=== PATIENT | male | born 1990 | race Two or more races ===

== ENCOUNTER 2016-03-27 03:06 | Emergency (ER) | payer SELFPAY ==
[~2016-03-27] VITALS: Ht 172.7 cm; Wt 108.9 kg
[2016-03-27 03:28] VITALS: BP 131/92
[2016-03-27] MEDS ORDERED: AMOX1TAB61 PO (03:36)
--- NOTE | 2016-03-27 03:37 | PHYS DOC ---
Past Medical History Past Medical History: Hypertension, Unknown, Other Additional Past Medical Histor: suicide attempt Past Surgical History: No Surgical History Alcohol Use: Occasionally Drug Use: None Adult General Chief Complaint Chief Complaint: FINGER INJURY HPI HPI 25-year-old male presenting the emergency department with an injury that occurred 6 days ago where he sustained a laceration and smash injury to his right ring finger. He has been using ibuprofen and Neosporin with mild improvement. He has noticed worsening redness and pain in the area of injury. His pain is sharp nonradiating mild and worse with movement. Review of systems is negative for nausea vomiting fevers chills chest pain or shortness of breath. All other review of systems is negative unless otherwise noted in history of present illness. Review of Systems Review of Systems SEE ABOVE. Current Medications Current Medications Current Medications Medications (Trade) Dose Ordered Sig/Malik Start Time Stop Time Status Last Admin Dose Admin Diphtheria/ Tetanus/Acell Pertussis (Boostrix) 0.5 ml ONCE ONCE 03/27/16 04:00 03/27/16 04:00 DC Allergies Allergies Allergies Coded Allergies Type Severity Reaction Last Updated Verified No Known Drug Allergies 10/23/14 No Physical Exam Physical Exam Constitutional: Well developed, well nourished, no acute distress, non-toxic appearance. HENT: Normocephalic, atraumatic, bilateral external ears normal, oropharynx moist, no oral exudates, nose normal. [] Eyes: PERRLA, EOMI, conjunctiva normal, no discharge. Neck: Normal range of motion, no tenderness, supple, no stridor. Cardiovascular:Heart rate regular rhythm, no murmur [] Lungs & Thorax: Bilateral breath sounds clear to auscultation Abdomen: Bowel sounds normal, soft, no tenderness, no masses, no pulsatile masses. [] Skin: Warm, dry, no erythema, no rash. Back: No tenderness, no CVA tenderness. [] Extremities: The patient's right ring finger is warm swollen and has an old laceration that is healing currently by secondary intention on the volar aspect of the ring finger. 2 second cap refill present. Otherwise no injuries present. Neurologic: Alert and oriented X 3, normal motor function, normal sensory function, no focal deficits noted. [] Psychologic: Affect normal, judgement normal, mood normal. [] Current Patient Data Vital Signs Vital Signs Date Time Temp Pulse Resp B/P Pulse Ox O2 Delivery O2 Flow Rate FiO2 03/27/16 03:28 98.2 114 16 95 Room Air 98.2 03/27/16 03:28 131/92 EKG EKG [] Radiology/Procedures Radiology/Procedures [] Course & Med Decision Making Course & Med Decision Making Pertinent Labs and Imaging studies reviewed. (See chart for details) [] 25-year-old male presenting the emergency department after sustaining injury to his right ring finger approximately 6 days ago. Injury was outside of the timeframe for primary intention reapproximation. Tetanus update was ordered however the patient left prior to this being able to be completed. The finger looked infected. X-ray was ordered however the patient left prior to x-ray being obtained. I recommended oral antibiotics and referral to a hand surgeon. Unfortunately, the patient did not want to wait to be discharged and left AGAINST MEDICAL ADVICE. I explained to him that he could lose his hand and his life if this infection is not taking care of. I offered him antibiotics however the patient left prior to my ability to give him the antibiotic prescription. He did say he was going to go to another local hospital. Dragon Disclaimer Dragon Disclaimer This electronic medical record was generated, in whole or in part, using a voice recognition dictation system. Departure Departure Impression: Primary Impression: Finger infection Disposition: AGAINST MEDICAL ADVICE Condition: GUARDED Referrals: NO PCP (PCP) LIZZ ROMEO II, MD Patient Instructions: Fingertip Infections Additional Instructions: Thank you for allowing us to participate in your care today. Followup with orthopedic hand surgery on MondayMar 28. Appointments may be made with Jackson Adams M.D., Gentry Warren M.D., and Maximus Quinonez M.D. by calling [phone] at the [facility]. If you do not have a primary care provider you can ask for a list of our primary care providers. Return to the emergency department you have any new or concerning findings. This should be evaluated by the primary care physician and any necessary consulting services for continued management within a few days after discharge. Return to emergency room if you have any new or concerning symptoms including but not limited to fever, chills, nausea, vomiting, intractable pain, any new rashes, chest pain, shortness of air, uncontrolled bleeding, difficulty breathing, and/or vision loss. Scripts Amoxicillin/Potassium Clav (Augmentin 875-125 Tablet)1 Each Tablet1 Tab PO BID # 20 TAB Prov:MICHELLE WONG MD 03/27/16 MICHELLE WONG MD Mar 27, 2016 03:37
[2016-03-27] MEDS ORDERED: DIPHTH,PERTUSS(ACELL),TET TOX 0.5 ML DISP.SYRIN. VAX IM ONE (04:00)
== END 2016-03-27 03:47 | disposition left against medical advice (07) ==
LOC: ER 03:06
DX: L08.9 Local infection of the skin and subcutaneous tissue, unspecified (principal); I10 Essential (primary) hypertension
CPT/HCPCS: 99283

== ENCOUNTER 2016-07-22 03:43 | Emergency (ER) | payer SELFPAY ==
[~2016-07-22] VITALS: Ht 172.7 cm; Wt 108.9 kg
[~2016-07-22 03:43] MED LIST: AMOX1TAB61 PO
[2016-07-22 04:03] LABS: BASO # 0.1 x10^3/uL (0.0-0.2); BASO % 1 % (0-3); EOS % 1 % (0-3); HEMATOCRIT 50.2 % (39.0-53.0); HEMOGLOBIN 17.5 g/dL (13.0-17.5); LYMPH # 4.2 x10^3/uL (1.0-4.8); LYMPH % 41 % (24-48); MEAN CORPUSCULAR HEMOGLOBIN 33 pg (25-35); MEAN CORPUSCULAR HGB CONC 35 g/dL (31-37); MEAN CORPUSCULAR VOLUME 95 fL (79-100); MONO % 6 % (0-9); NEUT % 51 % (31-73); PLATELET COUNT 205 x10^3/uL (140-400); RED BLOOD COUNT 5.29 x10^6/uL (4.30-5.70); RED CELL DISTRIBUTION WIDTH 12.5 % (11.5-14.5); WHITE BLOOD COUNT 10.2 x10^3/uL (4.0-11.0)
[2016-07-22 04:18] LABS: CALCIUM 8.8 mg/dL (8.5-10.1); CREATININE 0.9 mg/dL (0.7-1.3); GFR 102.8; POTASSIUM 3.9 mmol/L (3.5-5.1)
--- NOTE | 2016-07-22 04:20 | PHYS DOC ---
Past Medical History Past Medical History: Hypertension, Unknown, Other Additional Past Medical Histor: suicide attempt Past Surgical History: No Surgical History Alcohol Use: Heavy Drug Use: None Adult General Chief Complaint Chief Complaint: OVERDOSE HPI HPI Patient is a 26 year old gentleman who presents here today secondary to depression and suicide attempt. Patient reports he overdosed on a bottle of aspirin, Tylenol Jelco, and ibuprofen approximately midnight to 1 AM. Patient has a history of hypertension that he reports he is not treated for. Patient denies any diabetes liver longer kidney problems. Patient denies any mental health issues in the past. Patient denies any prior suicide attempts in the past. Patient denies any fevers shakes chills nausea vomiting diarrhea. Patient has been to midepigastric abdominal pain. Patient denies any emesis after his overdose. Patient reports he lost his never came to the ER after taking all those medications. Patient reports he was drinking alcohol earlier today. He reports he drank 4 large beers. Patient's physical exam is significant for tenderness to palpation to the midepigastric area. Patient has no rebound or guarding. Patient is not present with a surgical abdomen. Patient is alert awake oriented 3. Patient's is moving all extremities well. Patient's pupils are equally round and reactive to light. Extraocular motions are intact. Patient does have axillary sweat. Heart is regular rate and rhythm. Lungs were clear without any wheezing rales or rhonchi. Assessment and plan Depression/suicide attempt. Patient overdosed on aspirin, Tylenol, ibuprofen and alcohol. We will check his overdose panel and reevaluate the patient. Patient's ER workup was significant for an alcohol level of 271. Despite the patient reporting that he overdosed on a bottle of Tylenol gelcaps and a bottle of aspirin the patient's Tylenol level 0 and the aspirin level at presumably 2 hours out is 4. The remainder the patient's lab workup is benign unremarkable. Patient does not appear to be having an acidosis. There is no anion gap. Patient clinically does not present a someone with a salicylate toxicity. Patient denies any tinnitus. Patient is evaluated by our PAT team and they recommended that he is stable for discharge for mental health standpoint. The patient currently is not suicidal. We will go ahead and repeat his salicylate level to assure that it is not rising and of his salicylate level is less than 4 that I feel the patient will be stable for discharged home. Assessment and plan Depression/suicidal ideation with overdose of aspirin Tylenol and ibuprofen with alcohol use. Patient's clinically hemodynamically stable at this time. Patient's labs were all within normal limits. Patient will be stable for discharged home. Review of Systems Review of Systems Constitutional: Denies fever or chills [] Eyes: Denies change in visual acuity, redness, or eye pain [] HENT: Denies nasal congestion or sore throat [] Respiratory: Denies cough or shortness of breath [] Cardiovascular: No additional information not addressed in HPI [] GI: Denies abdominal pain, nausea, vomiting, bloody stools or diarrhea [] : Denies dysuria or hematuria [] Musculoskeletal: Denies back pain or joint pain [] Integument: Denies rash or skin lesions [] Neurologic: Denies headache, focal weakness or sensory changes [] Endocrine: Denies polyuria or polydipsia [] Current Medications Current Medications Current Medications Medications (Trade) Dose Ordered Sig/Malik Start Time Stop Time Status Last Admin Dose Admin Sodium Chloride 1,000 ml @ 1,000 mls/hr 1X ONCE 07/22/16 04:30 07/22/16 05:29 DC 07/22/16 04:30 1,000 MLS/HR Allergies Allergies Allergies Coded Allergies Type Severity Reaction Last Updated Verified No Known Drug Allergies 10/23/14 No Physical Exam Physical Exam Constitutional: Well developed, well nourished, no acute distress, non-toxic appearance. [] HENT: Normocephalic, atraumatic, bilateral external ears normal, oropharynx moist, no oral exudates, nose normal. [] Eyes: PERRLA, EOMI, conjunctiva normal, no discharge. [] Neck: Normal range of motion, no tenderness, supple, no stridor. [] Cardiovascular:Heart rate regular rhythm, no murmur [] Lungs & Thorax: Bilateral breath sounds clear to auscultation [] Abdomen: Bowel sounds normal, soft, Skin: Warm, dry, no erythema, no rash. [] Back: No tenderness, no CVA tenderness. [] Extremities: No tenderness, no cyanosis, no clubbing, ROM intact, no edema. [] Neurologic: Alert and oriented X 3, normal motor function, normal sensory function, no focal deficits noted. [] Psychologic: Affect normal, judgement normal, mood normal. [] Current Patient Data Vital Signs Vital Signs Date Time Temp Pulse Resp B/P (MAP) Pulse Ox O2 Delivery O2 Flow Rate FiO2 07/22/16 03:50 98.1 119 18 186/111 (136) 97 Room Air 98.1 Lab Values Laboratory Tests Test 07/22/16 03:54 07/22/16 05:01 White Blood Count 10.2 x10^3/uL (4.0-11.0) Red Blood Count 5.29 x10^6/uL (4.30-5.70) Hemoglobin 17.5 g/dL (13.0-17.5) Hematocrit 50.2 % (39.0-53.0) Mean Corpuscular Volume 95 fL (79-100) Mean Corpuscular Hemoglobin 33 pg (25-35) Mean Corpuscular Hemoglobin Concent 35 g/dL (31-37) Red Cell Distribution Width 12.5 % (11.5-14.5) Platelet Count 205 x10^3/uL (140-400) Neutrophils (%) (Auto) 51 % (31-73) Lymphocytes (%) (Auto) 41 % (24-48) Monocytes (%) (Auto) 6 % (0-9) Eosinophils (%) (Auto) 1 % (0-3) Basophils (%) (Auto) 1 % (0-3) Neutrophils # (Auto) 5.2 x10^3uL (1.8-7.7) Lymphocytes # (Auto) 4.2 x10^3/uL (1.0-4.8) Monocytes # (Auto) 0.7 x10^3/uL (0.0-1.1) Eosinophils # (Auto) 0.1 x10^3/uL (0.0-0.7) Basophils # (Auto) 0.1 x10^3/uL (0.0-0.2) Sodium Level 141 mmol/L (136-145) Potassium Level 3.9 mmol/L (3.5-5.1) Chloride Level 104 mmol/L (98-107) Carbon Dioxide Level 25 mmol/L (21-32) Anion Gap 12 (6-14) Blood Urea Nitrogen 7 mg/dL (8-26) L Creatinine 0.9 mg/dL (0.7-1.3) Estimated GFR (Cockcroft-Gault) 102.8 BUN/Creatinine Ratio 8 (6-20) Glucose Level 117 mg/dL (70-99) H Calcium Level 8.8 mg/dL (8.5-10.1) Total Bilirubin 0.2 mg/dL (0.2-1.0) Aspartate Amino Transferase (AST) 56 U/L (15-37) H Alanine Aminotransferase (ALT) 108 U/L (16-63) H Alkaline Phosphatase 87 U/L (46-116) Total Protein 8.4 g/dL (6.4-8.2) H Albumin 4.2 g/dL (3.4-5.0) Albumin/Globulin Ratio 1.0 (1.0-1.7) Salicylates Level 4.3 mg/dL (2.8-20.0) Salicylate Last Dose Date Unk Salicylate Last Dose Time Unk Acetaminophen Level < 2 mcg/ml (10-30) L Acetaminophen Last Dose Date Unk Acetaminophen Last Dose Time Unk Ethyl Alcohol Level 271 mg/dL (0-10) H Urine Collection Type Unknown Urine Color Yellow Urine Clarity Clear Urine pH 5.5 Urine Specific Cando 1.010 Urine Protein Negative mg/dL (NEG-TRACE) Urine Glucose (UA) Negative mg/dL (NEG) Urine Ketones (Stick) Negative mg/dL (NEG) Urine Blood Negative (NEG) Urine Nitrite Negative (NEG) Urine Bilirubin Negative (NEG) Urine Urobilinogen Dipstick 0.2 mg/dL (0.2 mg/dL) Urine Leukocyte Esterase Negative (NEG) Urine RBC 0 /HPF (0-2) Urine WBC 0 /HPF (0-4) Urine Squamous Epithelial Cells Few /LPF Urine Bacteria 0 /HPF (0-FEW) Urine Opiates Screen Neg (NEG) Urine Methadone Screen Neg (NEG) Urine Barbiturates Neg (NEG) Urine Phencyclidine Screen Neg (NEG) Urine Amphetamine/Methamphetamine Neg (NEG) Urine Benzodiazepines Screen Neg (NEG) Urine Cocaine Screen Neg (NEG) Urine Cannabinoids Screen Neg (NEG) Urine Ethyl Alcohol Pos (NEG) Laboratory Tests 07/22/16 03:54 Laboratory Tests 07/22/16 03:54 EKG EKG [] Radiology/Procedures Radiology/Procedures [] Course & Med Decision Making Course & Med Decision Making Pertinent Labs and Imaging studies reviewed. (See chart for details) [] Dragon Disclaimer Dragon Disclaimer This electronic medical record was generated, in whole or in part, using a voice recognition dictation system. Departure Departure Impression: Primary Impression: Alcohol intoxication Additional Impressions: Depression Suicidal ideation Suicide attempt Drug overdose Disposition: 01 HOME, SELF-CARE Condition: IMPROVED Referrals: NO PCP (PCP) Patient Instructions: Alcohol Intoxication, Depression, Adult, Suicide, Helping Someone Who is Suicidal Problem Qualifiers SHAZIA BINGHAM MD Jul 22, 2016 04:19
[2016-07-22 04:23] LABS: ALBUMIN 4.2 g/dL (3.4-5.0); TOTAL BILIRUBIN 0.2 mg/dL (0.2-1.0); TOTAL PROTEIN 8.4 g/dL (6.4-8.2)
[2016-07-22 04:25] LABS: ETHANOL 271 mg/dL (0-10)
[2016-07-22] MEDS ORDERED: IV NORMAL SALINE 1000ML BAG 1,000 ML IV ONE ×2 (04:30→07:15)
[2016-07-22 05:09] LABS: BILIRUBIN,URINE NEGATIVE (NEG); GLUCOSE,URINE NEGATIVE (NEG); NITRITE,URINE NEGATIVE (NEG); PH,URINE 5.5; PROTEIN,URINE NEGATIVE (NEG-TRACE); UROBILINOGEN,URINE 0.2 mg/dL (0.2 mg/dL)
[2016-07-22 05:15] LABS: BARBITURATES NEG (NEG); BENZODIAZEPINES NEG (NEG); CANNABINOIDS NEG (NEG); COCAINE NEG (NEG); METHADONE NEG (NEG); OPIATES NEG (NEG); PHENCYCLIDINE NEG (NEG)
[2016-07-22 05:17] LABS: BACTERIA,URINE 0 /HPF (0-FEW); RBC,URINE 0 /HPF (0-2); SQUAMOUS EPITHELIAL CELL,UR FEW /LPF; WBC,URINE 0 /HPF (0-4)
--- NOTE | 2016-07-22 05:32 | ACF ---
Admission Forms Criteria DRUG INGESTION OR OVERDOSE Clinical Indications for Admission to Inpatient Care ( Place 'X' for any and all applicable criteria): Admission is indicated for severe toxicity as indicated by ANY ONE of the following(1)(2)(3)(4)(5)(6): [ ]I. Inpatient admission required rather than observation care (Also use Drug Ingestion or Overdose: Observation Care guideline as appropriate) because of ANY ONE of the following: [ ]a) Altered mental status that is severe or persistent [ ]b) Clinical finding (eg, metabolic acidosis, hypoglycemia, bradycardia) that is severe or persistent [ ]c) Toxic drug level that is persistent [ ]d) Psychiatric risk status not acceptable for outpatient management [ ]e) Continuous intravenous infusion of anticoagulation, platelet inhibitor, vasoactive, or antiarrhythmic medication (15)(16) [ ]f) Other condition, treatment or monitoring requiring inpatient admission [ ]II. Respiratory abnormalities [ ]III. Specific finding indicating severe and likely prolonged drug toxicity [ ]IV. Hemodynamic instability [ ]V. Dangerous arrhythmia [ ]. Hypertension requiring inpatient treatment Extended stay beyond goal length of stay may be needed for (4): [ ]a) Neurologic or respiratory compromise [ ]b) Hemodynamic instability [ ]c) Persistent toxic drug levels (25) [ ]d) Severe drug toxicities or complications [ ]e) Ongoing antidote treatment (eg, acetaminophen overdose)(5) [ ]f) Older patients(65 years or older) The original [employer] content created by [employer] has been revised. The portions of the content which have been revised are identified through the use of italic text or in bold, and [facility] has neither reviewed nor approved the modified material. All other unmodified content is copyright [employer]. Please see references footnoted in the original [employer] edition 2016 SATHISH HREBERT Jul 22, 2016 05:32
[2016-07-22 06:52] VITALS: BP 143/78
[2016-07-22 07:35] LABS: ALT (SGPT) 111 U/L (16-63); AST (SGOT) 59 U/L (15-37)
== END 2016-07-22 08:03 | disposition home or self-care (01) ==
LOC: ER 03:43
DX: T39.012A Poisoning by aspirin, intentional self-harm, initial encounter (principal); T39.1X2A Poisoning by 4-Aminophenol derivatives, intentional self-harm, initial encounter; T39.312A Poisoning by propionic acid derivatives, intentional self-harm, initial encounter; F32.9 Major depressive disorder, single episode, unspecified; R10.13 Epigastric pain; I10 Essential (primary) hypertension; F10.129 Alcohol abuse with intoxication, unspecified; Y90.9 Presence of alcohol in blood, level not specified; Y92.89 Other specified places as the place of occurrence of the external cause; Y90.8 Blood alcohol level of 240 mg/100 ml or more
CPT/HCPCS: 36415; 80053; 80305; 81001; 84450; 84460; 85027; 96360; 96361; 99285; G0480; J7030; 80329; G0481

== ENCOUNTER 2019-12-31 22:29 | Emergency (ER) | payer SELFPAY ==
[~2019-12-31] VITALS: Ht 172.7 cm; Wt 88.0 kg
[2019-12-31 22:40] VITALS: BP 176/114
--- NOTE | 2019-12-31 23:07 | PHYS DOC ---
Past Medical History Past Medical History: Anxiety, Depression, Hypertension, Unknown, Other Additional Past Medical Histor: suicide attempt Past Surgical History: No Surgical History Smoking Status: Current Every Day Smoker Alcohol Use: Heavy Drug Use: None General Adult EDM: Chief Complaint: DENTAL PROBLEM HPI: HPI: Patient is a 29 year old male with history of hypertension, depression, anxiety, who presents to the ED today with swelling on the left gum from a dental abscess. Patient states he has history of dental infections. He states this morning woke up and his left side of the face was swollen. Denies any fever, denies any trismus. He states he drank "ALOT" of alcohol today. He states he does not want to follow-up with [facility] because we sent homeless people to follow-up from there. Initially stated he is homeless then he stated he has a roommate he is not homeless. He is mean at times using "F" language on people in the room including myself Review of Systems: Review of Systems: Constitutional: Denies fever or chills. [] HENT: Reports dental abscess Musculoskeletal: Denies back pain or joint pain. [] Integument: Denies rash. [] Neurologic: Denies headache, focal weakness or sensory changes. [] Psychiatric: Denies depression or anxiety. [] Heart Score: Risk Factors: Risk Factors: DM, Current or recent (<one month) smoker, HTN, HLP, family history of CAD, obesity. Risk Scores: Score 0 - 3: 2.5% MACE over next 6 weeks - Discharge Home Score 4 - 6: 20.3% MACE over next 6 weeks - Admit for Clinical Observation Score 7 - 10: 72.7% MACE over next 6 weeks - Early Invasive Strategies Allergies: Allergies: Allergies Coded Allergies Type Severity Reaction Last Updated Verified No Known Drug Allergies 10/23/14 No Physical Exam: PE: Constitutional: Well developed, well nourished, no acute distress, non-toxic appearance. [] HENT: Normocephalic, atraumatic, bilateral external ears normal, oropharynx moist, no oral exudates, nose normal. [] Left exterior jaw with moderate swelling consistent of a dental abscess. Missing some of his premolars, and molars, the surface where the premolars and molars existed appears to have DKA, the gum is swollen with no fluctuance. Skin: Warm, dry, no erythema, no rash. [] Back: No tenderness, no CVA tenderness. [] Extremities: No tenderness, no cyanosis, no clubbing, ROM intact, no edema. [] Neurologic: Alert and oriented X 3, normal motor function, normal sensory function, no focal deficits noted. [] Psychologic: Patient is mean at times using "F" language. He is very drunk Current Patient Data: Vital Signs: Vital Signs Date Time Temp Pulse Resp B/P (MAP) Pulse Ox O2 Delivery O2 Flow Rate FiO2 12/31/19 22:40 98.0 130 16 176/114 (134) 98 Room Air 98.0 EKG: EKG: [] Radiology/Procedures: Radiology/Procedures: [] Course & Med Decision Making: Course & Med Decision Making Pertinent Labs and Imaging studies reviewed. (See chart for details) This is a 29-year-old male patient presenting to the ED with a dental abscess. Patient is extremely drunk right now, at times using foul language on hospital staff. Patient left AMA Shahnaz Disclaimer: Shahnaz Disclaimer: This electronic medical record was generated, in whole or in part, using a voice recognition dictation system. Departure Departure Impression: Primary Impression: Dental abscess Additional Impression: Alcohol intoxication Qualified Codes: F10.929 - Alcohol use, unspecified with intoxication, unspecified Disposition: 07 AMA/ELOPED/LWBS Condition: STABLE Referrals: NO PCP (PCP) MARIELLE MARTINI APRN Dec 31, 2019 23:07
[2019-12-31] MEDS ORDERED: CLINDAMYCIN HCL 150 MG CAPSULE. PO ONE (23:30)
[2019-12-31] MEDS ORDERED: cefTRIAXone IM 1 GM VIAL IM ONE (23:30)
[2019-12-31] MEDS ORDERED: KETOROLAC 60 MG/2 ML VIAL. IM ONE (23:30)
== END 2019-12-31 23:18 | disposition home or self-care (01) ==
LOC: ER 22:29
DX: K04.7 Periapical abscess without sinus (principal); F10.229 Alcohol dependence with intoxication, unspecified; R60.0 Localized edema; F41.9 Anxiety disorder, unspecified; F32.9 Major depressive disorder, single episode, unspecified; I10 Essential (primary) hypertension; F17.200 Nicotine dependence, unspecified, uncomplicated
CPT/HCPCS: 99281

== ENCOUNTER 2020-01-01 12:40 | Emergency (ER) | payer SELFPAY ==
[~2020-01-01] VITALS: Ht 170.2 cm; Wt 100.0 kg
[2020-01-01] MEDS ORDERED: MORPHINE SULFATE 4 MG/ML VIAL. IV ONE (13:15)
--- NOTE | 2020-01-01 13:18 | PHYS DOC ---
Past Medical History Past Medical History: Anxiety, Depression, Hypertension, Unknown, Other Additional Past Medical Histor: suicide attempt Past Surgical History: No Surgical History Smoking Status: Current Every Day Smoker Alcohol Use: Heavy Drug Use: None General Adult EDM: Chief Complaint: DENTAL PROBLEM HPI: HPI: History from patient. Patient is a 21-year-old male with no reported past medical history who presents with complaint of jaw swelling. He states he was seen in our emergency department for some swelling to the left submandibular region. He states that he ended up leaving prior to receiving any discharge instructions or medications. He states he returns today with worsening swelling to his left lower lip and submandibular region. States the swelling is spread to his submental region. Does have some slight pain with opening his mouth. Denies any changes to his voice. Does note some mild tenderness with swallowing. Denies any fevers. Denies any recent antibiotics. Denies any recent dental procedures. Denies trauma to the area. Does not take any NATALEE inhibitor's. Denies vomiting. States pain is aching in nature. Rates pain as 6 out of 10. States pain is constant. States it is somewhat painful to chew food. Denies any active drainage in the mouth. No other complaints Review of Systems: Review of Systems: Constitutional: Denies fever or chills. [] Eyes: Denies change in visual acuity. [] HENT: Positive for odynophagia Respiratory: Denies cough or shortness of breath. [] Cardiovascular: Denies chest pain or edema. [] GI: Denies abdominal pain, nausea, vomiting, bloody stools or diarrhea. [] : Denies dysuria. [] Musculoskeletal: Denies back pain or joint pain. [] Integument: Denies rash. [] Neurologic: Denies headache, focal weakness or sensory changes. [] Endocrine: Denies polyuria or polydipsia. [] Lymphatic: Denies swollen glands. [] Psychiatric: Denies depression or anxiety. [] Heart Score: Risk Factors: Risk Factors: DM, Current or recent (<one month) smoker, HTN, HLP, family history of CAD, obesity. Risk Scores: Score 0 - 3: 2.5% MACE over next 6 weeks - Discharge Home Score 4 - 6: 20.3% MACE over next 6 weeks - Admit for Clinical Observation Score 7 - 10: 72.7% MACE over next 6 weeks - Early Invasive Strategies Current Medications: Current Medications Medications (Trade) Dose Ordered Sig/Malik Start Time Stop Time Status Last Admin Dose Admin Morphine Sulfate (Morphine Sulfate) 4 mg 1X ONCE 01/01/20 13:15 01/01/20 13:16 Allergies: Allergies: Allergies Coded Allergies Type Severity Reaction Last Updated Verified No Known Drug Allergies 10/23/14 No Physical Exam: PE: Constitutional: Well developed, well nourished, no acute distress, non-toxic appearance. [] HENT: Normocephalic, atraumatic, bilateral external ears normal, oropharynx moist, no oral exudates, nose normal. [] ENT: Tolerates saliva. Mild trismus. Mild erythema of the oropharynx without exudate. No airway obstruction. Normal phonation. Uvula midline. No woody sen sation at the base of the tongue. NECK: No midline cervical tenderness. Anterior cervical adenopathy is present. No tenderness of carotid sheath bilaterally. Neck supple with ful ROM and without signs of meningismus. Swelling and firmness palpated in the left submandibular and left-sided submental regions. Eyes: PERRLA, EOMI, conjunctiva normal, no discharge. [] Neck: Normal range of motion, no tenderness, supple, no stridor. [] Cardiovascular:Heart rate regular rhythm, no murmur [] Lungs & Thorax: Bilateral breath sounds clear to auscultation [] Abdomen: soft, no tenderness, no masses, no pulsatile masses. [] Skin: Warm, dry, no erythema, no rash. [] Back: No tenderness, no CVA tenderness. [] Extremities: No tenderness, no cyanosis, no clubbing, ROM intact, no edema. [] Neurologic: Alert and oriented X 3, normal motor function, normal sensory function, no focal deficits noted. [] Psychologic: Affect normal, judgement normal, mood normal. [] Current Patient Data: Labs: Laboratory Tests Test 01/01/20 13:15 White Blood Count 11.7 x10^3/uL Red Blood Count 5.17 x10^6/uL Hemoglobin 17.8 g/dL Hematocrit 50.5 % Mean Corpuscular Volume 98 fL Mean Corpuscular Hemoglobin 34 pg Mean Corpuscular Hemoglobin Concent 35 g/dL Red Cell Distribution Width 12.3 % Platelet Count 127 x10^3/uL Neutrophils (%) (Auto) 79 % Lymphocytes (%) (Auto) 12 % Monocytes (%) (Auto) 8 % Eosinophils (%) (Auto) 0 % Basophils (%) (Auto) 1 % Neutrophils # (Auto) 9.3 x10^3/uL Lymphocytes # (Auto) 1.4 x10^3/uL Monocytes # (Auto) 1.0 x10^3/uL Eosinophils # (Auto) 0.0 x10^3/uL Basophils # (Auto) 0.1 x10^3/uL Sodium Level 137 mmol/L Potassium Level 4.4 mmol/L Chloride Level 100 mmol/L Carbon Dioxide Level 27 mmol/L Anion Gap 10 Blood Urea Nitrogen 8 mg/dL Creatinine 0.7 mg/dL Estimated GFR (Cockcroft-Gault) 134.3 Glucose Level 122 mg/dL Calcium Level 9.2 mg/dL Current Medications Medications (Trade) Dose Ordered Sig/Malik Route PRN Reason Start Time Stop Time Status Last Admin Dose Admin Morphine Sulfate (Morphine Sulfate) 4 mg 1X ONCE IV 01/01/20 13:15 01/01/20 13:16 DC 01/01/20 13:25 Iohexol (Omnipaque 300 Mg/ml) 70 ml 1X ONCE IV 01/01/20 13:45 01/01/20 13:46 DC 01/01/20 14:00 Info (CONTRAST GIVEN -- Rx MONITORING) 1 each PRN DAILY PRN MC SEE COMMENTS 01/01/20 14:00 01/03/20 13:59 Ampicillin Sodium/ Sulbactam Sodium 3 gm/Sodium Chloride 100 ml @ 200 mls/hr 1X ONCE IV 01/01/20 15:30 01/01/20 15:59 01/01/20 15:29 Hydromorphone HCl (Dilaudid) 1 mg 1X ONCE IVP 01/01/20 15:15 01/01/20 15:16 DC 01/01/20 15:27 Vital Signs: Vital Signs Date Time Temp Pulse Resp B/P (MAP) Pulse Ox O2 Delivery O2 Flow Rate FiO2 01/01/20 14:48 100 174/85 (114) 99 Room Air 01/01/20 13:11 99.0 114 20 169/110 (129) 97 Room Air 99.0 EKG: EKG: [] Radiology/Procedures: Radiology/Procedures: [facility] [address] [place] [address] IMAGING REPORT Signed PATIENT: JOSH SEVILLA ACCOUNT: [id number] : 1990 LOCATION: ER AGE: 29 SEX: M EXAM STATUS: REG ER ORD. PHYSICIAN: DUSTY THOMAS DO REASON: Left submental and submandibular swelling and pain PROCEDURE: CT SOFT TISSUE NECK W/CONTRAST PQRS Compliance Statement: One or more of the following individualized dose reduction techniques were utilized for this examination: 1. Automated exposure control 2. Adjustment of the mA and/or kV according to patient size 3. Use of iterative reconstruction technique CT SOFT TISSUE NECK W/CONTRAST Clinical Indication: Reason: Left submental and submandibular swelling and pain / Spl. Instructions: INJ 70ML OMNI 300 / History: Comparison: None. TECHNIQUE: Helical CT imaging of the soft tissues of the neck is performed after 70 cc of Omnipaque 300 IV contrast. Findings: Visualized brain is without midline shift or mass effect. The globes and orbits are intact. Minimal mucosal thickening left maxillary sinus. Mastoid air cells are aerated. The parapharyngeal fat planes are preserved. Parotid and submandibular glands are symmetric. There is a dental cavity of the left mandible first molar. Superficial to this there is a periodontal abscess measuring up to 3.2 cm AP by 0.6 cm transverse by approximately 1 cm craniocaudal. There is subcutaneous induration of the left maxilla, left lateral mandible, and bilateral submandibular and submental regions. There is asymmetric thickening of the left platysma. There are mildly enlarged level 1A , 1B, 2, and 3 lymph nodes that are probably reactive. The thyroid is symmetric. Residual thymus in the anterior mediastinum is incidentally noted. The upper lungs are clear. Cervical spine alignment is maintained. IMPRESSION: 1. There is a dental cavity of the left mandible first molar tooth. There is an associated periodontal abscess. 2. There is severe subcutaneous induration of the left mandible and bilateral submandibular and submental regions which may be reactive or due to cellulitis. 3. There are reactive upper left cervical lymph nodes. Electronically signed by: Sohail Rogers MD (01/01/2020 2:26 PM) [facility] DICTATED and SIGNED BY: SOHAIL ROGERS MD DATE: 01/01/20 [id number] [] Course & Med Decision Making: Course & Med Decision Making Pertinent Labs and Imaging studies reviewed. (See chart for details) [] Patient is a 29-year-old male who presents with chief complaint of submandibular and submental pain and swelling over the past 24 hours. Denies trauma. Does note dental pain. On exam patient does have dysphonia with trismus. Submental and left submandibular fullness palpated. CT imaging does reveal left molar periapical abscess with extensive cellulitis in the left-sided submandibular and submental regions. Patient is currently protecting his airway. However, I am concerned for the potential of Kel's angina development and potential requirement of operative intervention. Unfortunately we do not have oral surgery or ENT surgery available at our facility. Do feel he requires observation at a facility with these resources if needed. He was given 3 g of Unasyn. [facility] was consulted for transfer. accepted the patient to their emergency department for subsequent hospitalization. Patient did remain hemodynamically stable and was protecting his airway that difficulty prior to transfer. Shahnaz Disclaimer: Shahnaz Disclaimer: This electronic medical record was generated, in whole or in part, using a voice recognition dictation system. Departure Departure Impression: Primary Impression: Ludwigs angina Disposition: 02 DC/TRF OTHER SHORT TERM HOS Condition: STABLE Referrals: NO PCP (PCP) DUSTY THOMAS DO Jan 01, 2020 13:18
[2020-01-01 13:30] LABS: BASO # 0.1 x10^3/uL (0.0-0.2); BASO % 1 % (0-3); EOS % 0 % (0-3); HEMATOCRIT 50.5 % (39.0-53.0); HEMOGLOBIN 17.8 g/dL (13.0-17.5); LYMPH # 1.4 x10^3/uL (1.0-4.8); LYMPH % 12 % (24-48); MEAN CORPUSCULAR HEMOGLOBIN 34 pg (25-35); MEAN CORPUSCULAR HGB CONC 35 g/dL (31-37); MEAN CORPUSCULAR VOLUME 98 fL (79-100); MONO % 8 % (0-9); NEUT # 9.3 x10^3/uL (1.8-7.7); NEUT % 79 % (31-73); PLATELET COUNT 127 x10^3/uL (140-400); RED BLOOD COUNT 5.17 x10^6/uL (4.30-5.70); RED CELL DISTRIBUTION WIDTH 12.3 % (11.5-14.5); WHITE BLOOD COUNT 11.7 x10^3/uL (4.0-11.0)
[2020-01-01 13:37] LABS: CALCIUM 9.2 mg/dL (8.5-10.1); CREATININE 0.7 mg/dL (0.7-1.3); GFR 134.3; POTASSIUM 4.4 mmol/L (3.5-5.1)
[2020-01-01] MEDS ORDERED: IOHEXOL 300 MG/ML 100ML VIAL. IV ONE (13:45)
[2020-01-01] MEDS ORDERED: CONTRAST GIVEN. MC PRN (14:00)
--- NOTE | 2020-01-01 14:29 | RAD ---
PQRS Compliance Statement: One or more of the following individualized dose reduction techniques were utilized for this examination: 1. Automated exposure control 2. Adjustment of the mA and/or kV according to patient size 3. Use of iterative reconstruction technique CT SOFT TISSUE NECK W/CONTRAST Clinical Indication: Reason: Left submental and submandibular swelling and pain / Spl. Instructions: INJ 70ML OMNI 300 / History: Comparison: None. TECHNIQUE: Helical CT imaging of the soft tissues of the neck is performed after 70 cc of Omnipaque 300 IV contrast. Findings: Visualized brain is without midline shift or mass effect. The globes and orbits are intact. Minimal mucosal thickening left maxillary sinus. Mastoid air cells are aerated. The parapharyngeal fat planes are preserved. Parotid and submandibular glands are symmetric. There is a dental cavity of the left mandible first molar. Superficial to this there is a periodontal abscess measuring up to 3.2 cm AP by 0.6 cm transverse by approximately 1 cm craniocaudal. There is subcutaneous induration of the left maxilla, left lateral mandible, and bilateral submandibular and submental regions. There is asymmetric thickening of the left platysma. There are mildly enlarged level 1A , 1B, 2, and 3 lymph nodes that are probably reactive. The thyroid is symmetric. Residual thymus in the anterior mediastinum is incidentally noted. The upper lungs are clear. Cervical spine alignment is maintained. IMPRESSION: 1. There is a dental cavity of the left mandible first molar tooth. There is an associated periodontal abscess. 2. There is severe subcutaneous induration of the left mandible and bilateral submandibular and submental regions which may be reactive or due to cellulitis. 3. There are reactive upper left cervical lymph nodes. Electronically signed by: Sohail Murillo MD (01/01/2020 2:26 PM) [facility]
[2020-01-01 14:48] VITALS: BP 174/85
[2020-01-01] MEDS ORDERED: HYDROmorphone 2 MG/ML VIAL IVP ONE (15:15)
[2020-01-01] MEDS ORDERED: AMPICILLIN/SULBACTAM 3 GM in IV NORMAL SALINE 100ML 100 ML IV ONE (15:30)
== END 2020-01-01 15:45 | disposition short-term general hospital (02) ==
LOC: ER 12:40
DX: K12.2 Cellulitis and abscess of mouth (principal); I10 Essential (primary) hypertension; F17.200 Nicotine dependence, unspecified, uncomplicated
CPT/HCPCS: 36415; 70491; 80048; 85025; 96365; 96375; 99285; J0295; J1170; J2270; Q9967